=== PATIENT | male | born 1985 | race Caucasian/White ===

== ENCOUNTER → 2016-09-17 | Outpatient (CLI) | payer BC, OTHER ==
--- NOTE | 2016-09-18 08:47 | CR ---
EXAMINATION: Right ankle HISTORY: Hardware COMPARISON: 08/05/2016 TECHNIQUE: 3 views FINDINGS/IMPRESSION: There is stable screw and plate fixation of the distal fibula and tibia. Positi on and alignment appear grossly unchanged. Ankle mortise and talar dome appear intact. The fractures appear nearly well-healed.
== END ==
LOC: MW.CHORTHO 07:55
PROVIDERS: ATTEND Orthopaedic Surgery
DX: Z96.7 Presence of other bone and tendon implants (principal); Z87.81 Personal history of (healed) traumatic fracture
CPT/HCPCS: 73610-26-RT; 73610-RT